=== PATIENT | female | born 2000 | race Asian ===

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

== ENCOUNTER 2022-03-11 00:01 | Outpatient (CLI) | payer MEDICAID ==
[~2022-03-11] VITALS: Ht 162.6 cm; Wt 65.9 kg
[~2022-03-11 00:01] MED LIST changes: +KLOR-CON20 MEQ PO
[2022-03-11 00:55] VITALS: BP 107/61; PULSE 91; TEMP 98.7
--- NOTE | 2022-03-11 01:17 | NUR ---
PT CAME IN FOR DECREASED MOVEMENT. PT CHANGED INTO GOWN AND WAS PLACED ON THE MONITORS. SOON MONITOR WAS PLACED ON HER ABD THE BABY WAS KICKING AND MOVING. WHEN ASKED IF SHE FELT THAT SHE LAUGHED AND SAID "YES, I DID THAT WAS A HARD KICK. AND NOW IT IS MOVING ALL OVER. SEVERAL KICKS FELT AND HEARD ON THE MONITOR. PT STATED SHE WAS JUST WORRIED THE BABY HAD NOT BEEN MOVING MUCH TODAY. SHE FEELS RELIEVED NOW. FHR IS 130'S, MODERATE VARIBILITY WITH ACCELS AND NO DECELS. NO UC'S NOTED. PT STATES SHE HAD FELT A FEW YVAN BERG YESTERDAY BUT NOTHING STRONG OR REGULAR. DR RHODES WAS NOTIFIED OF PT'S COMPLAINT AND FHR STRIP REACTIVE. ORDERS FOR HER TO GO HOME AND CONTINUE WITH HER KICK COUNTS, DRINKING MORE WATER AND INSTRUCTIONS ON WHEN TO RETURN IF NEEDED.
== END 2022-03-11 01:09 ==
LOC: LDRO 00:01
DX: O36.8190 Decreased fetal movements, unspecified trimester, not applicable or unspecified (principal); Z3A.00 Weeks of gestation of pregnancy not specified

== ENCOUNTER 2022-04-24 20:01 | Outpatient (CLI) | payer MEDICAID ==
[~2022-04-24] VITALS: Ht 165.1 cm; Wt 70.9 kg
--- NOTE | 2022-04-24 20:15 | NUR ---
2014 - PATIENT SEEN IN OBT FOR POSSIBLE SROM WHILE USING THE BATHROOM. VSS. FHT REACTIVE AND REASSURING WITH IRREGULAR MILD CONTRACTIONS NOTED. SVE PERFORMED; . AMNIOSWAB NEGATIVE. POOLING NEGATIVE. ROM+ NEGATIVE.
[2022-04-24 21:04] VITALS: BP 121/68; PULSE 86; TEMP 97.7
--- NOTE | 2022-04-24 21:21 | NUR ---
2103 - DR. LEVIN UPDATED ABOUT PATIENT STATUS AND NEGATIVE RESULT OF ROM+. NEW ORDERS RECEIVED TO DISCHARGE PATIENT. PRECAUTIONS GIVEN TO PATIENT WHO VERBALIZES UNDERSTANDING AND FEELS COMFORTABLE GOING HOME. AMBULATORY OFF UNIT AT 2119 IN STABLE CONDITION.
== END 2022-04-24 21:20 ==
LOC: LDRO 20:01
DX: Z34.93 Encounter for supervision of normal pregnancy, unspecified, third trimester (principal); Z3A.38 38 weeks gestation of pregnancy

== ENCOUNTER → 2022-04-29 | Outpatient (CLI) | payer MEDICAID ==
[~2022-04-29] VITALS: Ht 165.1 cm; Wt 70.9 kg
[2022-04-30 00:35] VITALS: BP 123/71; PULSE 88; TEMP 98
[2022-04-30 01:41] VITALS: BP 129/58; PULSE 83
--- NOTE | 2022-04-30 01:49 | NUR ---
@[address] LEVIN REGARDING PT SVE 2/80/-2 UPON ARRIVAL 1HR SVE 2/80/-1 . BABIES HAS MODERATE VARIBILITY, NO LEAKING OF FLUID OR BLOODY AND LAURA Q5-6 MIN. SAID ITS OK FOR PT TO GO HOME.
--- NOTE | 2022-04-30 02:16 | NUR ---
PATIENT GIVEN DISCHARGE INFORMATION. ALL QUESTIONS HAVE BEEN ANSWERED AND PT STATES SHE UNDERSTAND. PATIENT OBSERVED AMBULATING OFF THE UNIT ALONG WITH FOB WITH A STEADY GATE.
== END ==
LOC: LDRO 23:55
DX: O62.9 Abnormality of forces of labor, unspecified (principal); Z3A.39 39 weeks gestation of pregnancy

== ENCOUNTER 2022-05-02 03:36 | Inpatient (IN) | payer MEDICAID ==
[2022-05-02] VITALS (13 sets, daily range): BP systolic 113–125; BP diastolic 56–90; PULSE 73–90; TEMP 97.6–98.8
[~2022-05-02] VITALS: Ht 165.1 cm; Wt 71.8 kg
--- NOTE | 2022-05-02 04:53 | NUR ---
@[address] RHODES REGARDING PT COMPLAINT OF UTERINE CONTRACTIONS AND SVE /-2 BLOODY SHOW. ORDERS TO ADMIT PT WAS PROVIDED AND OK FOR PT TO LABOR IN TUB FOLLOWING HOSPITAL POLICY. @5729 PATIENT WAS ASSISTED TO THE TUB VIA AMBULATION. FOB IS AT THE BEDSIDE. WILL CONTINUE TO MONITOR PT.
[2022-05-02 05:03] LABS: BASO # 0.1 K/mm3 (0.0-0.2); BASO % 0.3 % (0.0-2.0); EOS # 0.3 K/mm3 (0.0-0.7); EOS % 1.8 % (0.0-4.0); GRAN # 11.3 K/mm3 (1.4-6.5); GRAN % 73.6 % (42.2-75.2); HEMOGLOBIN 10.3 g/dl (12.0-15.0); LYMPH # 2.6 K/mm3 (1.2-3.4); LYMPH % 17.1 % (20.0-51.0); MEAN CELL VOLUME 73 fl (80.0-95.0); MEAN CORPUSCULAR HEMOGLOBIN 24 pg (26-32); MEAN CORPUSCULAR HGB CONC 32 g/dl (33.0-37.0); MEAN PLATELET VOLUME 11.2 fl (7.4-10.4); MONO % 6.7 % (1.7-9.3); PLATELET COUNT 219 K/mm3 (130-400); RED BLOOD COUNT 4.35 M/mm3 (4.10-5.30); REDCELL DISTRIBUTION WIDTH-CV 12.9 % (11.5-14.5)
[2022-05-02 05:04] LABS: HEMATOCRIT 31.9 % (35.0-45.0)
--- NOTE | 2022-05-02 06:03 | NUR ---
@0601 DR. SALOMON WAS NOTIFIED REGARDING PT SVE WITH A BULGING WATER BAG. ORDERS TO CALL [facility] WHEN PT IS READY FOR DELIVERY.
--- NOTE | 2022-05-02 07:35 | NUR ---
0700-PT PUSHING WITH CONTRACTIONS. RN AND MD AT BEDSIDE MONITORING FHR. PT TOLERATING WELL. 0720- OF INFANT HEAD BY DR. SALOMON. NUCHAL X1 LOOSE AND REDUCED PER MD. SHOULDER DYSTOCIA CALLED BY DR. SALOMON. PT PLACED IN ELENA POSITION. ADDITIONAL HELP CALLED. CHARGE NURSE AT BEDSIDE. 0721- OF INFANT BODY BY DR. SALOMON. 0726= OF PLACENTA PER DR. SALOMON. CARE PLAN UPDATED.
[2022-05-03 01:30] VITALS: BP 112/62; PULSE 72; TEMP 98.7
[2022-05-03 07:30] VITALS: BP 99/59; PULSE 66; TEMP 97.8
[2022-05-03] MEDS ORDERED: IBU800 M1 PO (08:40)
--- NOTE | 2022-05-03 10:56 | NUR ---
Initial visit; Parents thanked Art History Instructor for offering congratulations and God's blessings for the of their daughter. Art History Instructor thanked family for choosing [facility].
--- NOTE | 2022-05-03 13:07 | NUR ---
DISCHARGE INSTRUCTIONS REVIEWED WITH PATIENT, HEALTH HISTORY GIVEN. QUESTIONS INVITED AND ANSWERED.
== END 2022-05-03 13:30 | disposition home or self-care (01) | DRG 807 ==
LOC: LDRO 03:36 → LDR 04:17 → OB 04:17
PROVIDERS: ADMIT Obstetrics & Gynecology
PROC: 10E0XZZ Delivery of Products of Conception, External Approach (ICD-10-PCS; principal; 2022-05-02)
PROC: 0KQM0ZZ Repair Perineum Muscle, Open Approach (ICD-10-PCS; 2022-05-02)
PROC: 0UQMXZZ Repair Vulva, External Approach (ICD-10-PCS; 2022-05-02)
PROC: 10907ZC Drainage of Amniotic Fluid, Therapeutic from Products of Conception, Via Natural or Artificial Opening (ICD-10-PCS; 2022-05-02)
DX: O99.344 Other mental disorders complicating childbirth (principal); Z37.0 Single live birth; F32.A Depression, unspecified; Z3A.39 39 weeks gestation of pregnancy; O69.81X0 Labor and delivery complicated by cord around neck, without compression, not applicable or unspecified; O70.1 Second degree perineal laceration during delivery
CPT/HCPCS: J2590; J7120

== ENCOUNTER 2022-11-04 03:30 | Emergency (ER) | payer MEDICAID ==
[~2022-11-04] VITALS: Ht 165.1 cm; Wt 56.8 kg
[2022-11-04 03:44] VITALS: TEMP 98.1
[2022-11-04 04:21] LABS: BASO % 0.6 % (0.0-2.0); EOS # 0.1 K/mm3 (0.0-0.7); EOS % 1.3 % (0.0-4.0); GRAN % 57.4 % (42.2-75.2); HEMATOCRIT 37.4 % (35.0-45.0); HEMOGLOBIN 12.4 g/dl (12.0-15.0); LYMPH # 1.8 K/mm3 (1.2-3.4); LYMPH % 33.1 % (20.0-51.0); MEAN CELL VOLUME 77 fl (80.0-95.0); MEAN CORPUSCULAR HEMOGLOBIN 26 pg (26-32); MEAN CORPUSCULAR HGB CONC 33 g/dl (33.0-37.0); MEAN PLATELET VOLUME 10.2 fl (7.4-10.4); MONO # 0.4 K/mm3 (0.1-0.6); MONO % 7.2 % (1.7-9.3); PLATELET COUNT 274 K/mm3 (130-400); RED BLOOD COUNT 4.86 M/mm3 (4.10-5.30); REDCELL DISTRIBUTION WIDTH-CV 13.3 % (11.5-14.5)
[2022-11-04 04:40] LABS: ALANINE AMINOTRANSFERASE 22 U/L (0-55); ALBUMIN 4.3 gm/dL (3.5-5.0); ALCOHOL(ethanol),MEDICAL 25 mg/dL (0-10); ALKALINE PHOSPHATASE 88 U/L (40-150); ANION GAP 8 mmol/L (7-16); AST,SGOT 21 U/L (5-34); BILIRUBIN,TOTAL 0.8 mg/dL (0.2-1.2); BLOOD UREA NITROGEN 9 mg/dL (7-19); CALCIUM 9.2 mg/dL (8.4-10.2); CARBON DIOXIDE 22 mmol/L (22-29); CHLORIDE 109 mmol/L (98-107); CREATININE, serum 0.82 mg/dL (0.57-1.11); GLUCOSE 94 mg/dL (70-99); POTASSIUM 3.6 mmol/L (3.5-4.5); SODIUM 139 mmol/L (136-145); TOTAL PROTEIN 7.1 gm/dL (6.2-8.1)
[2022-11-04 04:41] LABS: ACETAMINOPHEN < 1.0 ug/mL (10-30); SALICYLATE < 5.0 mg/dL (15.0-30.0)
[2022-11-04 05:00] LABS: TSH w REFLEX 1.693 uIU/mL (0.350-4.940)
[2022-11-04 05:18] LABS: COLLECTION METHOD CLEAN CATCH
[2022-11-04 05:28] LABS: MUCOUS Present (NOT PRESENT); URINE APPEARANCE Clear (CLEAR/HAZY); URINE BACTERIA None Seen /hpf (NONE SEEN); URINE COLOR Yellow (YELLOW); URINE RBC 0-2 /hpf (0-2)
[2022-11-04 05:29] LABS: PH 5.5 (5.0-8.5); URINE BLOOD Negative (NEGATIVE); URINE GLUCOSE Negative (NEGATIVE); URINE KETONE Negative (NEGATIVE); URINE NITRATE Negative (NEGATIVE); URINE PROTEIN(semi-quant) 2+ (NEGATIVE); URINE UROBILINOGEN 0.2 E.U/dL (0.2-1.0)
[2022-11-04 05:34] LABS: TRICYCLIC ANTIDEPRESS URINE NEGATIVE
[2022-11-04 10:35] VITALS: BP 101/63; PULSE 82
== END 2022-11-04 11:02 | disposition home or self-care (01) ==
LOC: COL.ER 03:30
PROVIDERS: Emergency Medicine
DX: R45.851 Suicidal ideations (principal); Z86.59 Personal history of other mental and behavioral disorders; Z28.310 Unvaccinated for COVID-19